=== PATIENT | male | born 2000 | race Caucasian/White ===

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

== ENCOUNTER 2021-05-06 10:29 | Emergency (ER) | payer OTHER, SELFPAY ==
[2021-05-06 10:36] VITALS: BP 138/80; PULSE 56; RESP 16; TEMP 36.7; O2SAT 99
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
== END 2021-05-06 11:23 | disposition home or self-care (01) ==
PROVIDERS: Emergency Provider Emergency Medicine
DX: S50.12XA Contusion of left forearm, initial encounter (principal); V67.5XXA Driver of heavy transport vehicle injured in collision with fixed or stationary object in traffic accident, initial encounter
CPT/HCPCS: 99283; 73090

== ENCOUNTER 2022-03-07 15:17 | Emergency (ER) | payer SELFPAY ==
[2022-03-07 15:23] VITALS: BP 128/78; PULSE 62; TEMP 36.8; O2SAT 98
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
[2022-03-07] MEDS: Sulfameth/Trimeth DS TAB 1 TAB PO (16:30)
== END 2022-03-07 17:01 | disposition home or self-care (01) ==
PROVIDERS: Emergency Provider Physician Assistant; PCP Physician Assistant Medical
DX: L03.116 Cellulitis of left lower limb (principal)
CPT/HCPCS: 99283; 99284

== ENCOUNTER 2022-10-19 10:41 | Emergency (ER) | payer OTHER, SELFPAY ==
[2022-10-19 10:53] VITALS: BP 154/80; PULSE 78; RESP 16; TEMP 36.9; O2SAT 97
--- NOTE | 2022-10-19 11:00 | DI.CT_ITS ---
Exam(s) CT ABDOMEN PELVIS W EXAM: CT ABDOMEN PELVIS W CLINICAL HISTORY: lower abdomen pain, fever at home. TECHNIQUE: Imaging Protocol: Axial computed tomography images with coronal and sagittal reformatted images were created and reviewed CONTRAST MATERIAL: Intravenous: Omnipaque-350 100cc Oral: None COMPARISON: No exams were available for comparison FINDINGS: VISUALIZED LUNG BASES: No nodules nor pleural effusions evident. ABDOMEN: There is no ascites. LIVER: There are no focal hepatic lesions evident. No dilated intrahepatic ducts. GALLBLADDER/BILIARY: No obvious gallbladder pathology. CBD is not dilated. PANCREAS: No evidence of pancreatic mass nor dilatation of the pancreatic duct. SPLEEN: Spleen is not enlarged. No obvious intrasplenic lesions. Splenic and portal veins are paten t. ADRENALS: There are no significant adrenal masses. KIDNEYS:No cysts evident. No solid renal masses. No calculi nor hydronephrosis.. ABDOMINAL AORTA: Abdominal aorta is not enlarged. LYMPH NODES:There is no retroperitoneal nor paraaortic adenopathy. ABDOMINAL WALL: No evidence of significant anterior abdominal wall nor inguinal hernia. GI: All small bowel loops are slightly enlarged and fluid-filled, measuring up to 3.1 cm diameter. T his extends all the way to the ileocecal valve. There is also fluid in the ascending-right colon. C olon is collapsed at the distal transverse colon level. Colon distal to this is relatively collapsed . No obvious colitis pattern. No diverticulosis evident. PELVIS: GI: No evidence of appendicitis.No evidence of sigmoid diverticulitis. LYMPH NODES: There is no intrapelvic nor inguinal adenopathy. REPRODUCTIVE: Age-appropriate URINARY BLADDER: No calculi nor obvious masses evident OSSEOUS: No fractures nor osseous lesions. There is a unilateral pars defect on the left side at L5 level. No listhesis. No canal stenosis. IMPRESSION: 1. Diffuse enteritis pattern. There are mildly dilated and fluid-filled small bowel loops throughout the abdomen and pelvis. No evidence of distinct stricture. There is no ascites. 2. Appendix is difficult to locate but there is no evidence of obvious appendicitis and no evidence o f acute diverticulitis. No obvious colitis pattern \ RADIATION DOSE DELIVERED: 770.49mGy.cm Total DLP DATA REPOSITORY: All CT scans at this facility are submitted to the National Radiology Data Registry (NRDR) Dose Index Registry (DIR) with the [employer] (ACR). RADIATION OPTIMIZATION: All CT scans at this facility use at least one of these dose optimization te chniques: automated exposure control; mA and/or kV adjustment per patient size (includes targeted exa ms where dose is matched to clinical indication); or iterative reconstruction.
--- NOTE | 2022-10-19 11:13 | ED.GENADUL_ITS ---
Discharge Plan Disposition Patient Disposition: Home Condition: Improving Discharge Details Clinical Impression: Enteritis Primary Care Provider: Alexey Perez ED Provider: Julio Cabrera Home Meds and New Rx's Prescriptions: New ondansetron HCl 4 mg tablet 4 mg PO BID-TID PRNQty: 10 0RF Discharge Instructions Instructions: Gastroenteritis (ED) Additional Instructions: Home to rest. Small, frequent sips of fluids to maintain hydration. May use provided Zofran if needed for nausea. Return to the emergency room for any acute concern. Medical Decision Making 22-year-old male presents with lower abdominal pain, nausea, vomiting, and loose stools over 3 days time. He has noted some pain with movement and is tender in the abdomen on exam. He had a subjective fever at home. On arrival the patient is afebrile with a pulse of 78, blood pressure 154/80. He is tender in the lower abdomen. Differential diagnosis includes gastroenteritis, colitis, atypical presentation of appendicitis. Patient referred for laboratory testing and CT imaging. Laboratories reveal a white count of 4, hematocrit of 48, sodium 135, potassium 3.8, chloride 98, BUN 21, creatinine 1.0. LFTs are unremarkable as is lipase. CT reveals diffuse enteritis pattern with mildly dilated and fluid-filled small bowel loops. No evidence of appendicitis or diverticulitis. Case discussed with patient. He is improving and will benefit from antiemetic at home. He understands indications to seek reevaluation in the ER. Lab Data Lab results reviewed: Yes I reviewed the patient's lab results. Labs: Laboratory Results - last 24 hr 10/19/22 10/19/22 11:40 11:40 WBC 4.27 L RBC 5.62 Hgb 16.3 Hct 48.0 MCV 85 MCH 29.0 MCHC 34.0 RDW 12.2 Plt Count MPV Immature Gran % See Differential Neutrophils % 54.0 Band Neutrophils % 4 Lymphocytes % 11.0 Monocytes % 28.0 Eosinophils % 0.0 Basophils % 0.0 Metamyelocytes % 3 Nucleated RBC % 0.0 Absolute Neutrophils 2.48 Absolute Lymphocytes 0.47 L Absolute Monocytes 1.20 H Absolute Eosinophils 0.00 Absolute Basophils 0.00 RBC Morphology Normal Sodium 135 L Potassium 3.8 Chloride 98 Carbon Dioxide 25.5 Anion Gap 11.5 H BUN 21 H Creatinine 1.0 Est GFR (CKD-EPI 2020) 109.81 Glucose 119 H Calcium 9.2 Total Bilirubin 0.5 AST 23 ALT 19 Alkaline Phosphatase 84 Total Protein 7.6 Albumin 3.6 Lipase 15 L HPI General Mode of arrival: ambulatory . Date/Time Provider Initiated Documentation: 10/19/22 10:56 . Limitations to Documentation: no limitations . Information obtained by: patient . History of Present Illness 22 year old M presents to the emergency department with the chief complaint of Nausea, vomiting, diarrhea and abdominal pain 3 days, described as moderate, Quality is described as dull, and is localized to the abdomen. Patient reports no radiation. Patient started experiencing this day(s) No relieving factors improve symptom(s), Movement worsens symptoms . Patient notes loss of appetite and nausea/vomiting. Patient did receive the following treatments prior to arrival, none Related Data Home Medications Medication Instructions Recorded Confirmed ondansetron HCl 4 mg tablet 4 mg PO BID-TID PRN #10 tabs 10/19/22 Previous Rx's Medication Instructions Recorded ondansetron HCl 4 mg tablet 4 mg PO BID-TID PRN #10 tabs 10/19/22 Allergies Allergy/AdvReac Type Severity Reaction Status Date / Time No Known Allergies Allergy Unverified 10/19/22 10:58 General Stated Complaint: Nausea/Vomit/Diar CAYDEN: 4 Review of Systems Narrative: 6 systems reviewed and otherwise negative. See HPI PFSH All Active Problems (Updated 10/19/22 @ 14:20 by Julio Cabrera MD) Contusion of left forearm (Acute) Enteritis (Acute) Medical History (Updated 10/19/22 @ 14:20 by Julio Cabrera MD) No significant past medical history Surgical History No significant past surgical history Social History Smoking/Tobacco Use Status: Never Smoking risk assessment performed?: Yes Alcohol Intake: never Drug use: Occasionally Substance use type: marijuana Do you feel safe at home: Yes Do you feel safe in your relationship?: Yes Exam Narrative Exam Narrative: GEN: awake, alert, oriented 3. Pleasant, well groomed, interactive. HEAD: Normocephalic, atraumatic ENT: Mucous membranes moist, oropharynx unremarkable, External ear exam unr emarkable EYES: PERRL, EOMI NECK: Full ROM, no FIDEL, no menigismus CHEST/RESP: Nontender, clear to auscultation bilateral, no wheeze/rhonchi/rales CARDIOVASCULAR: RRR, no murmur, rub kelsey. 2+ Rad pulse bilateral ABDOMEN: Soft, tender in the lower abdomen with mild rebound present, no mass. +Bowel sounds EXT: Full ROM, no edema, no rash Neuro: Grossly normal neurologic exam, conversant, interactive. Psych: Speech fluent, thoughts congruent, affect normal Course Vital Signs Vital signs: Vital Signs Temperature 36.9 C 10/19/22 10:53 Pulse 78 10/19/22 10:53 Respiratory Rate 16 10/19/22 10:53 Blood Pressure 154/80 H 10/19/22 10:53 Pulse Oximetry 97 10/19/22 10:53 Temperature 36.9 C 10/19/22 10:53 Temperature Source Skin 10/19/22 10:53 Pulse 78 10/19/22 10:53 Respiratory Rate 16 10/19/22 10:53 Respiratory Effort 10/19/22 10:58 Blood Pressure 154/80 H 10/19/22 10:53 Blood Pressure Position Sitting 10/19/22 10:53 Pulse Oximetry 97 10/19/22 10:53 Oxygen Delivery Method Room Air 10/19/22 10:53 Oxygen Flow Rate 0 10/19/22 10:53 Pain Level 4 10/19/22 10:53
[2022-10-19 11:52] LABS: Abs Immature Grans 0.02 10^3/uL (0.0-0.06); HGB 16.3 g/dL (13.5-17.5); MCV 85 fL (80-95); RBC 5.62 10^6/uL (4.36-5.78); RDW 12.2 % (11.8-14.1); WBC 4.27 10^3/uL (4.4-10.8)
[2022-10-19] MEDS: Ondansetron 4 MG/2 ML VIAL IVP (11:55)
[2022-10-19] MEDS: Normal Saline 1,000 ML 1000 ML IV (11:58)
[2022-10-19 12:09] LABS: ALT 19 U/L (16-63); AST 23 U/L (15-37); Albumin 3.6 g/dL (3.4-5.0); Alkaline Phosphatase 84 U/L (46-116); Anion Gap 11.5 mmol/L (3-11); BUN 21 mg/dL (7-18); Bilirubin, Total 0.5 mg/dL (0.2-1.0); CO2 25.5 mmol/L (21.0-32.0); Calcium 9.2 mg/dL (8.5-10.1); Chloride 98 mmol/L (98-107); Estimated GFR 109.81 (mL/min/1.73m2); Glucose 119 mg/dL (74-106); Lipase 15 U/L (16-77); Potassium 3.8 mmol/L (3.5-5.1); Sodium 135 mmol/L (136-145); Total Protein 7.6 g/dL (6.4-8.2)
[2022-10-19 12:25] LABS: Absolute Lymphocyte Count 0.47 10^3/uL (1.2-3.4); Absolute Neutrophil Count 2.48 10^3/uL (1.2-6.7); Bands % 4
[2022-10-19 12:26] LABS: Diff Comment Manual Differential; Metamyelocytes % 3; RBC Morphology Normal
[2022-10-19 12:44] VITALS: BP 124/72; PULSE 62; RESP 16; TEMP 37.2; O2SAT 97
[2022-10-19 14:24] VITALS: BP 124/75; PULSE 69; RESP 19; TEMP 36.8; O2SAT 100
== END 2022-10-19 14:35 | disposition home or self-care (01) ==
PROVIDERS: Emergency Provider Emergency Medicine; PCP Physician Assistant Medical
DX: K52.9 Noninfective gastroenteritis and colitis, unspecified (principal)
CPT/HCPCS: 36415; 80053; 83690; 96361; 96374; 99285; 74177; 85025; 99284; J2405